=== PATIENT | male | born 1965 | race Asian ===

== ENCOUNTER 2023-07-23 11:03 | Emergency (ER) | payer OTHER, SELFPAY ==
[2023-07-23] VITALS (11 sets, daily range): BP systolic 181–232; BP diastolic 94–134; PULSE 109–122; RESP 16–33; TEMP 36.6; O2SAT 93–99
--- NOTE | 2023-07-23 11:40 | DI.RAD.S_ITS ---
PROCEDURE: XR CHEST 1V INDICATIONS: chest pain TECHNIQUE: One view of the chest was acquired. COMPARISON: None. FINDINGS: Surgical changes and devices: None. Lungs and pleura: Lungs are clear. No pleural effusions or pneumothorax. Mediastinum: Mediastinal contours appear normal. Heart size is normal. Bones and chest wall: No suspicious bony lesions. Overlying soft tissues appear unremarkable. IMPRESSION: No acute cardiopulmonary abnormality is seen. Dictated by: Noemy Umaña MD, PhD on 07/23/2023 at 12:04 Approved by: Noemy Umaña MD, PhD on 07/23/2023 at 12:04
[2023-07-23 11:56] LABS: Add Manual Diff / Slide Review NO; Basophils Absolute Auto 100 /uL (0-100); Eosinophils Absolute Auto 200 /uL (0-450); Eosinophils Percent Auto 2.4 % (2-4); Hematocrit 45.2 % (41-53); Lymphocytes Absolute Auto 800 /uL (1100-4500); Lymphocytes Percent Auto 9.1 % (25-40); Mean Corpuscular HGB Conc 33.2 % (30-36); Mean Corpuscular Volume 90.4 fL (80-100); Monocytes Absolute Auto 600 /uL (0-900); Monocytes Percent Auto 6.5 % (3-14); Neutrophils Absolute Auto 7500 /uL (1500-7000); Platelet Count 188 X10^3/uL (150-400); Red Blood Cell Count 5.01 X10^6/uL (4.5-5.9); Red Cell Distribution Width 14.6 % (11.6-14.8); White Blood Cell Count 9.2 X10^3/uL (4.5-11.0)
[2023-07-23 12:02] LABS: Prothrombin Time 11.9 SECONDS (9.4-12.5)
[2023-07-23 12:05] LABS: PTT Partial Thromboplastin Tim 30 SECONDS (25.1-36.5)
[2023-07-23 12:07] LABS: Alanine Aminotransferase 34 IU/L (<50); Albumin 4.5 g/dL (3.5-5.0); Alkaline Phosphatase 50 U/L (38-126); Aspartate Aminotransferase 28 IU/L (17-59); BUN Creatinine Ratio 19.3 (6-22); Bilirubin Total 0.6 mg/dL (0.2-1.3); Blood Urea Nitrogen 16 mg/dL (9-20); Carbon Dioxide 29 mmol/L (22-32); Chloride 106 mmol/L (98-107); Creatine Kinase 197 U/L (55-170); Estimated Glomerular Filt Rate > 60 mL/min (>60); Globulin 2.2 g/dL (1.7-4.1); Glucose 108 mg/dL (70-100); HEMOLYSIS 16 (0-50); Lipase 70 U/L (23-300); Sodium 138 mmol/L (137-145); Total Protein 6.7 g/dL (6.3-8.2)
[2023-07-23] MEDS: OXYMETAZOLINE NASAL SPRAY 30 ML 2 SPRAYS NASAL (12:13)
[2023-07-23 12:18] LABS: Troponin I 0.024 ng/mL (0.01-0.034)
--- NOTE | 2023-07-23 12:23 | ED_ITS ---
HPI - Epistaxis General Chief complaint: Nasal Problem Stated complaint: Nose Bleed, tachy, no thinners Time Seen by Provider: 07/23/23 11:39 Source: EMS Mode of arrival: EMS History of Present Illness HPI Narrative: Patient is a 58-year-old male without significant past medical history presenting today with epistaxis. 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 Came to the ED. He has not on any antiplatelet or anticoagulation medication. He is found to be tachycardic and extremely hypertensive. Me has no known history of hypertension not taking any current medications. He is completely asymptomatic without any sort of chest pain headache shortness of breath nausea or vomiting. He does not have an established PCP. Related Data Allergies Allergy/AdvReac Type Severity Reaction Status Date / Time No Known Drug Allergies Allergy Verified 07/23/23 11:41 Patient History Social History Smoking Status: Never smoker Smoking Status: Never smoker Substance Use Type: does not use Exam Initial Vital Signs Initial Vital Signs: Vital Signs Temperature 98 F 07/23/23 11:04 Pulse Rate 121 H 07/23/23 11:04 Respiratory Rate 16 07/23/23 11:04 Blood Pressure 226/134 H 07/23/23 11:04 Pulse Oximetry 99 07/23/23 11:04 Oxygen Delivery Method Room Air 07/23/23 11:04 GENERAL: Alert well-appearing 58-year-old male HEENT: Head atraumatic,EOMI, pupils reactive, face symmetric, NOSE: Was bleeding out of right side near but now bleeding controlled after nasal clamp and Afrin CARDIOVASCULAR: Regular rate and rhythm without murmurs, rubs or gallops. RESPIRATORY: Breath sounds equal bilaterally, no wheezes rales or rhonchi. ABDOMEN: Soft, nontender. Normoactive bowel sounds all 4 quadrants. No guarding or rebound. EXTREMITIES: Normal range of motion, no clubbing or edema. Neurovascularly intact NEUROLOGICAL: Alert and oriented x4.Normal gait and speech. No facial droop no obvious deficits SKIN: Warm, dry, no laceration, no petechiae, no rashes or lesions. Course Orders Ordered: ED Orders 07/23/23 11:39 EKG-12 Lead Stat 07/23/23 11:40 XR chest 1V Stat 07/23/23 11:46 Complete Blood Count AUTO DIFF Stat Comprehensive Metabolic Panel Stat D Dimer Stat Lipase Stat PTT Partial Thromboplastin Jhonny Stat Prothrombin Time INR Stat Troponin & CK Cardiac Panel Stat Discontinued Medications Oxymetazoline HCl (Oxymetazoline Nasal [place] 30 Ml) 2 sprays NASAL NOW ONE Stop: 07/23/23 11:40 Last Admin: 07/23/23 12:13 Dose: 2 sprays Documented By: JAMI Vital Signs Vital signs: Vital Signs - 8 hr 07/23/23 11:04 07/23/23 11:06 07/23/23 11:30 Temperature 98 F Pulse Rate 121 H 122 H 117 H Respiratory Rate 16 Blood Pressure 226/134 H Pulse Oximetry 99 96 93 Oxygen Delivery Method Room Air 07/23/23 11:31 07/23/23 11:31 07/23/23 11:38 Temperature Pulse Rate 117 H 120 H Respiratory Rate 21 Blood Pressure 182/131 H Pulse Oximetry 93 96 Oxygen Delivery Method 07/23/23 11:38 07/23/23 11:45 07/23/23 11:45 Temperature Pulse Rate 119 H Respiratory Rate 33 H Blood Pressure 232/119 H 223/112 H Pulse Oximetry 95 Oxygen Delivery Method 07/23/23 12:00 07/23/23 12:00 07/23/23 12:15 Temperature Pulse Rate 115 H 117 H Respiratory Rate 21 27 H Blood Pressure 186/106 H Pulse Oximetry 95 96 Oxygen Delivery Method 07/23/23 12:15 07/23/23 12:30 07/23/23 12:30 Temperature Pulse Rate 113 H Respiratory Rate 22 Blood Pressure 218/125 H 214/131 H Pulse Oximetry Oxygen Delivery Method 07/23/23 12:33 07/23/23 12:33 07/23/23 12:45 Temperature Pulse Rate 114 H 109 H Respiratory Rate 29 H 17 Blood Pressure 203/118 H Pulse Oximetry Oxygen Delivery Method 07/23/23 12:45 Temperature Pulse Rate Respiratory Rate Blood Pressure 181/94 H Pulse Oximetry Oxygen Delivery Method MDM - Epistaxis Lab Data 07/23/23 11:46 07/23/23 11:46 Labs: Lab Results 07/23/23 Range/Units 11:46 WBC 9.2 (4.5-11.0) X10^3/uL RBC 5.01 (4.5-5.9) X10^6/uL Hgb 15.0 (13.5-17.5) g/dL Hct 45.2 (41-53) % MCV 90.4 (80-100) fL MCH 30.0 (26-34) PG MCHC 33.2 (30-36) % RDW 14.6 (11.6-14.8) % Plt Count 188 (150-400) X10^3/uL Neut % (Auto) 81.0 H (50-75) % Lymph % (Auto) 9.1 L (25-40) % [place] % (Auto) 6.5 (3-14) % Eos % (Auto) 2.4 (2-4) % Baso % (Auto) 1.0 (0-2) % Neut # (Auto) 7500 H (2550-8096) /uL Lymph # (Auto) 800 L (5441-3605) /uL [place] # (Auto) 600 (0-900) /uL Eos # (Auto) 200 (0-450) /uL Baso # (Auto) 100 (0-100) /uL PT 11.9 (9.4-12.5) SECONDS INR 1.0 (0.9-1.3) APTT 30 (25.1-36.5) SECONDS D-Dimer 349 (<500) ng/ml Sodium 138 (137-145) mmol/L Potassium 4.0 (3.4-5.1) mmol/L Chloride 106 (98-107) mmol/L Carbon Dioxide 29 (22-32) mmol/L BUN 16 (9-20) mg/dL Creatinine 0.83 (0.66-1.25) mg/dL Estimated GFR > 60 (>60) mL/min BUN/Creatinine Ratio 19.3 (6-22) Glucose 108 H (70-100) mg/dL Calcium 9.0 (8.4-10.2) mg/dL Total Bilirubin 0.6 (0.2-1.3) mg/dL AST 28 (17-59) IU/L ALT 34 (<50) IU/L Alkaline Phosphatase 50 (38-126) U/L Total Creatine Kinase 197 H (55-170) U/L Troponin I 0.024 (0.01-0.034) ng/mL Total Protein 6.7 (6.3-8.2) g/dL Albumin 4.5 (3.5-5.0) g/dL Globulin 2.2 (1.7-4.1) g/dL Albumin/Globulin Ratio 2.0 (1.0-2.8) Lipase 70 (23-300) U/L ECG Data Attestation: I personally reviewed and interpreted this ECG as follows: Prior ECG tracings: not available for review Interpretation: Normal sinus rhythm rate 117 AR interval 130 QRS 84 QTC [address] changes or T-wave inversions MDM Narrative Medical decision making narrative: Patient is a 58-year-old male presenting today with acute epistaxis. He is found to have significantly elevated hypertension and tachycardia but is completely asymptomatic. I suspect that he has had uncontrolled hypertension For some time and is just asymptomatic. Blood work has been reviewed and does not show any evidence end-organ damage no evidence of anemia D-dimer is 349 Chest x-ray has been reviewed without any acute cardiopulmonary process EKG has been reviewed as above Strongly recommend that patient check blood pressure and heart rate at home. He will need blood pressure control we discussed about risk of heart attack and stroke. D-dimer is negative despite tachycardia years score is negative unlikely to be pulmonary embolism. Epistaxis was well-controlled with a nasal clamp and Afrin. No evidence of a posterior bleed. Blood pressure maybe related to epistaxis. YEARS Algorithm for Pulmonary Embolism (PE) from [employer] on 07/23/2023 All calculations should be rechecked by clinician prior to use RESULT SUMMARY: PE excluded YEARS algorithm rules out PE (0.43% with symptomatic VTE during 3-month follow- up) INPUTS: patient ?> 0 = No Clinical signs of DVT ?> 0 = No Hemoptysis ?> 0 = No PE most likely diagnosis ?> 0 = No D-dimer >=,000 ng/mL ?> 0 = No Discharge Plan Departure Patient Disposition: Home Clinical Impression: Epistaxis, Hypertension Instructions: High Blood Pressure, DI for Nosebleed Activity Restrictions/Additional Instructions: *You have been diagnosed with hypertension, nosebleed *What to do: At this time you do need control of your blood pressure may or may not be related to your bloody nose. Please take your blood pressure 1 to 2 times daily, record it and bring to her primary care provider. Please pay attention to symptoms showed says headache recurrent bloody nose chest pain shortness of breath If you should have recurrent bloody nose apply nasal clamp pressure and may try Afrin if it persists. *Continue to take medications as directed *Follow up with your primary care provider in 2-3 days or call [phone] *Return to ER if you should have recurrent bloody nose, chest pain headache shortness of breath numbness tingling weakness [or] any new, worsening or concerning symptoms Referrals: Miscellaneous,Doctor, MD [Primary Care Provider] - Stand Alone Forms: Patient Portal/API
[2023-07-23 12:45] LABS: D Dimer 349 ng/ml (<500)
== END 2023-07-23 13:13 | disposition home or self-care (01) ==
PROVIDERS: Emergency Provider Emergency Medicine
DX: R04.0 Epistaxis (principal); I10 Essential (primary) hypertension; R00.0 Tachycardia, unspecified
CPT/HCPCS: 36415; 71045; 80053; 82550; 83690; 84484; 85025; 85379; 85610; 85730; 93005; 99284

== ENCOUNTER 2023-07-26 13:11 | Emergency (ER) | payer OTHER, SELFPAY ==
[2023-07-26] VITALS (17 sets, daily range): BP systolic 140–201; BP diastolic 84–133; PULSE 67–190; RESP 8–23; TEMP 36.6; O2SAT 93–98; BMI 39.0
--- NOTE | 2023-07-26 13:23 | DI.RAD.S_ITS ---
PROCEDURE: XR CHEST 1V INDICATIONS: chest pain TECHNIQUE: One view of the chest was acquired. COMPARISON: [facility], CR, XR CHEST 1V, 07/23/2023, 11:50. FINDINGS: Surgical changes and devices: None. Lungs and pleura: Lungs are clear. No pleural effusions or pneumothorax. Mediastinum: Mediastinal contours appear normal. Heart size is normal. Bones and chest wall: No suspicious bony lesions. Overlying soft tissues appear unremarkable. IMPRESSION: Stable radiographic evaluation of the chest without acute cardiopulmonary abnormalities or focal airspace disease. Dictated by: Luis Langford M.D. on 07/26/2023 at 14:11 Approved by: Luis Langford M.D. on 07/26/2023 at 14:11
[2023-07-26 13:36] LABS: Add Manual Diff / Slide Review NO; Basophils Absolute Auto 100 /uL (0-100); Basophils Percent Auto 0.9 % (0-2); Eosinophils Absolute Auto 300 /uL (0-450); Eosinophils Percent Auto 2.3 % (2-4); Hematocrit 47.2 % (41-53); Hemoglobin 15.6 g/dL (13.5-17.5); Lymphocytes Absolute Auto 2400 /uL (1100-4500); Lymphocytes Percent Auto 20.2 % (25-40); Mean Corpuscular Hemoglobin 30.1 PG (26-34); Mean Corpuscular Volume 91.4 fL (80-100); Monocytes Absolute Auto 1000 /uL (0-900); Monocytes Percent Auto 8.7 % (3-14); Neutrophils Absolute Auto 8000 /uL (1500-7000); Neutrophils Percent Auto 67.9 % (50-75); Platelet Count 226 X10^3/uL (150-400); Red Blood Cell Count 5.16 X10^6/uL (4.5-5.9); Red Cell Distribution Width 14.9 % (11.6-14.8); White Blood Cell Count 11.8 X10^3/uL (4.5-11.0)
[2023-07-26 13:41] LABS: Prothrombin Time 11.5 SECONDS (9.4-12.5)
[2023-07-26 13:44] LABS: PTT Partial Thromboplastin Tim 38 SECONDS (25.1-36.5)
[2023-07-26 13:45] LABS: Alanine Aminotransferase 35 IU/L (<50); Albumin 4.6 g/dL (3.5-5.0); Albumin Globulin Ratio 1.9 (1.0-2.8); Alkaline Phosphatase 64 U/L (38-126); Aspartate Aminotransferase 28 IU/L (17-59); BUN Creatinine Ratio 14.7 (6-22); Bilirubin Total 0.7 mg/dL (0.2-1.3); Blood Urea Nitrogen 16 mg/dL (9-20); Calcium 8.9 mg/dL (8.4-10.2); Carbon Dioxide 24 mmol/L (22-32); Chloride 107 mmol/L (98-107); Creatine Kinase 80 U/L (55-170); Estimated Glomerular Filt Rate > 60 mL/min (>60); Globulin 2.4 g/dL (1.7-4.1); Glucose 120 mg/dL (70-100); HEMOLYSIS < 15 (0-50); Lipase 88 U/L (23-300); Magnesium 2.1 mg/dL (1.6-2.3); Potassium 4.2 mmol/L (3.4-5.1); Sodium 140 mmol/L (137-145)
[2023-07-26] MEDS: SODIUM CHLORIDE 0.9% 1,000 ML 1000 ML IV (13:50)
[2023-07-26] MEDS: ADENOSINE 6 MG/2 ML VIAL IV (13:50)
[2023-07-26 13:57] LABS: Troponin I < 0.012 ng/mL (0.01-0.034)
--- NOTE | 2023-07-26 14:09 | ED_ITS ---
HPI - Arrhythmia/Palpitations General Chief Complaint: Arrhythmia/Palpitations Stated Complaint: WIC; Resting HR 192, Diaphoretic Time Seen by Provider: 07/26/23 14:09 Source: patient Mode of arrival: Wheelchair History of Present Illness HPI narrative: 58-year-old male with no known history of tachyarrhythmia, no prior SVT, known atrial fibrillation or atrial flutter problems, was seen here Saturday for nosebleed it when his blood pressure was increased, was supposed to see his physician in follow up for blood pressure issues in for any recurrence of nosebleed problems, today at walk-in clinic was noted to have increased heart rate, which he did not seem to be feeling, told that he had fast heartbeat. Referred here for further evaluation and treatment of tachycardia. No syncope or presyncope symptoms. Admits to feeling a little sweaty when directly asked, denies nausea, denies chest pain, or feeling short of breath. Related Data Previous Rx's Medication Instructions Recorded metoprolol tartrate 25 mg tablet 25 mg PO BID #30 tabs 07/26/23 Allergies Allergy/AdvReac Type Severity Reaction Status Date / Time No Known Drug Allergies Allergy Verified 07/26/23 13:23 Review of Systems Review of Systems Narrative: as per HPI Patient History Social History Smoking Status: Never smoker Smoking Status: Never smoker Substance Use Type: does not use Exam Narrative Exam Narrative: GENERAL: Well-developed patient, in no distress, mentating HEAD: Atraumatic. Normocephalic. EYES: Pupils equal round and reactive. Extraocular motions intact. No scleral icterus. No injection or drainage. ENT: Nose without bleeding, purulent drainage. Throat without erythema, tonsillar hypertrophy or exudate. Airway patent. NECK: Trachea midline. Non tender CARDIOVASCULAR: Fast rate regular rhythm without obvious murmurs, gallops, or rubs. RESPIRATORY: Clear to auscultation. Breath sounds equal bilaterally. No wheezes, rales, or rhonchi. GASTROINTESTINAL: Abdomen soft, non-tender, nondistended. EXTREMITIES: No edema or joint tenderness. BACK: Nontender without deformity or crepitance. No flank tenderness. NEURO: AOx3. Normal speech, grossly nonfocal neuro exam SKIN: No rash or erythema of visible areas Initial Vital Signs Initial Vital Signs: Vital Signs Temperature 97.9 F 07/26/23 13:17 Pulse Rate 190 H 07/26/23 13:17 Respiratory Rate 16 07/26/23 13:17 Blood Pressure 141/85 H 07/26/23 13:17 Pulse Oximetry 98 07/26/23 13:17 Oxygen Delivery Method Room Air 07/26/23 13:17 Course Orders Ordered: Discontinued Medications Adenosine (Adenosine 6 Mg/2 Ml Vial) 6 mg IV NOW ONE Stop: 07/26/23 13:50 Last Admin: 07/26/23 13:50 Dose: 6 mg Documented By: DILIP Aspirin (Aspirin 81 Mg Chew Tab) 324 mg PO NOW ONE Stop: 07/26/23 13:24 Last Admin: 07/26/23 15:13 Dose: Not Given Documented By: DILIP Sodium Chloride (Normal Saline 0.9%) 1,000 mls @ 1,000 mls/hr IV BOLUS ONE Stop: 07/26/23 14:48 Last Infusion: 07/26/23 15:06 Dose: Infused Documented By: Admin: 07/26/23 13:50 Dose: 1,000 mls/hr Documented By: DILIP Metoprolol Tartrate (Metoprolol Ir 25 Mg Tablet) 25 mg PO NOW ONE Stop: 07/26/23 14:46 Last Admin: 07/26/23 15:06 Dose: 25 mg Documented By: DILIP Vital Signs Vital signs: Vital Signs - 8 hr 07/26/23 13:17 07/26/23 13:37 07/26/23 13:40 Temperature 97.9 F Pulse Rate 190 H 67 Respiratory Rate 16 Blood Pressure 141/85 H 148/106 H Pulse Oximetry 98 94 Oxygen Delivery Method Room Air 07/26/23 13:40 07/26/23 14:00 07/26/23 14:00 Temperature Pulse Rate 182 H 112 H Respiratory Rate 10 L 9 L Blood Pressure 146/101 H Pulse Oximetry 97 95 Oxygen Delivery Method 07/26/23 14:30 07/26/23 14:30 07/26/23 15:00 Temperature Pulse Rate 106 H 99 H Respiratory Rate 8 L 8 L Blood Pressure 161/99 H Pulse Oximetry 97 96 Oxygen Delivery Method 07/26/23 15:00 07/26/23 15:30 07/26/23 15:30 Temperature Pulse Rate 93 H Respiratory Rate 8 L Blood Pressure 140/92 H 141/84 H Pulse Oximetry 95 Oxygen Delivery Method 07/26/23 16:00 07/26/23 16:01 07/26/23 16:01 Temperature Pulse Rate 90 89 Respiratory Rate 18 13 Blood Pressure 157/103 H Pulse Oximetry 98 97 Oxygen Delivery Method 07/26/23 16:30 07/26/23 16:30 07/26/23 17:00 Temperature Pulse Rate 88 80 Respiratory Rate 22 Blood Pressure 146/95 H Pulse Oximetry 93 95 Oxygen Delivery Method 07/26/23 17:00 07/26/23 17:30 07/26/23 17:31 Temperature Pulse Rate 74 81 Respiratory Rate 15 13 Blood Pressure 158/106 H Pulse Oximetry 94 95 Oxygen Delivery Method 07/26/23 17:31 07/26/23 18:00 07/26/23 18:00 Temperature Pulse Rate 74 Respiratory Rate 23 Blood Pressure 187/120 H 201/133 H Pulse Oximetry 95 Oxygen Delivery Method 07/26/23 18:30 07/26/23 18:31 07/26/23 18:31 Temperature Pulse Rate 78 76 Respiratory Rate Blood Pressure 193/101 H Pulse Oximetry 95 95 Oxygen Delivery Method 07/26/23 18:45 Temperature Pulse Rate Respiratory Rate Blood Pressure 177/109 H Pulse Oximetry Oxygen Delivery Method MDM - Arrhythmia/Palpitations Lab Data Attestation: I reviewed the patient's lab results. 07/26/23 13:21 07/26/23 13:21 Labs: Lab Results 07/26/23 07/26/23 Range/Units 13:21 17:04 WBC 11.8 H (4.5-11.0) X10^3/uL RBC 5.16 (4.5-5.9) X10^6/uL Hgb 15.6 (13.5-17.5) g/dL Hct 47.2 (41-53) % MCV 91.4 (80-100) fL MCH 30.1 (26-34) PG MCHC 33.0 (30-36) % RDW 14.9 H (11.6-14.8) % Plt Count 226 (150-400) X10^3/uL Neut % (Auto) 67.9 (50-75) % Lymph % (Auto) 20.2 L (25-40) % [place] % (Auto) 8.7 (3-14) % Eos % (Auto) 2.3 (2-4) % Baso % (Auto) 0.9 (0-2) % Neut # (Auto) 8000 H (7216-9656) /uL Lymph # (Auto) 2400 (8856-4313) /uL [place] # (Auto) 1000 H (0-900) /uL Eos # (Auto) 300 (0-450) /uL Baso # (Auto) 100 (0-100) /uL PT 11.5 (9.4-12.5) SECONDS INR 1.0 (0.9-1.3) APTT 38 H (25.1-36.5) SECONDS Sodium 140 (137-145) mmol/L Potassium 4.2 (3.4-5.1) mmol/L Chloride 107 (98-107) mmol/L Carbon Dioxide 24 (22-32) mmol/L BUN 16 (9-20) mg/dL Creatinine 1.09 (0.66-1.25) mg/dL Estimated GFR > 60 (>60) mL/min BUN/Creatinine Ratio 14.7 (6-22) Glucose 120 H (70-100) mg/dL Calcium 8.9 (8.4-10.2) mg/dL Magnesium 2.1 (1.6-2.3) mg/dL Total Bilirubin 0.7 (0.2-1.3) mg/dL AST 28 (17-59) IU/L ALT 35 (<50) IU/L Alkaline Phosphatase 64 (38-126) U/L Total Creatine Kinase 80 (55-170) U/L Troponin I < 0.012 0.043 H (0.01-0.034) ng/mL Total Protein 7.0 (6.3-8.2) g/dL Albumin 4.6 (3.5-5.0) g/dL Globulin 2.4 (1.7-4.1) g/dL Albumin/Globulin Ratio 1.9 (1.0-2.8) Lipase 88 (23-300) U/L Imaging Data Chest x-ray: Radiologist's Impresson: [address] [address] XRay Report Signed Patient: Navid Argueta MR#: [id number] : 1965 Acct:[id number] Age/Sex: 58 / M Date of Service: 07/26/23 Loc: ED Accession Number: [id number] Procedure: XR chest 1V Ordering Provider: Aaron Pablo MD PROCEDURE: XR CHEST 1V INDICATIONS: chest pain TECHNIQUE: One view of the chest was acquired. COMPARISON: [facility], CR, XR CHEST 1V, 07/23/2023, 11:50. FINDINGS: Surgical changes and devices: None. Lungs and pleura: Lungs are clear. No pleural effusions or pneumothorax. Mediastinum: Mediastinal contours appear normal. Heart size is normal. Bones and chest wall: No suspicious bony lesions. Overlying soft tissues appear unremarkable. IMPRESSION: Stable radiographic evaluation of the chest without acute cardiopulmonary abnormalities or focal airspace disease. Dictated by: Luis Langford M.D. on 07/26/2023 at 14:11 Approved by: Luis Langford M.D. on 07/26/2023 at 14:11 ECG Data Attestation: I personally reviewed and interpreted this ECG as follows: Interpretation: Study 1330, Narrow complex tachycardia, regular, consistent with supraventricular tachycardia. No obvious ST segment depression or elevation changes. None for comparison. Study 1402, normal sinus rhythm with rate 92, no obvious ST segment elevation or depression changes. T-wave inversion lead 3 noted. Upright in leads 2 and F. Unifocal PVCs noted. [place] 136, QRS 88, QTC 445. MDM Narrative Medical decision making narrative: 58-year-old male without history of any heart rate/rhythm problems, recent nosebleed ED evaluation had high BP, in follow up clinic for BP noted to have fast heart rate on pulse oximeter, heart rate 170 range, no shortness of breath, no chest pain, no syncope or presyncope symptoms. No nausea or vomiting neck or arm pain. EKG consistent with SVT, no obvious ischemic changes. Adenosine 6 mg IV push, sinus tachycardia 100 range noted. 1430, heart rate 100-110 further improved, IV fluid given. We will repeat interval troponin. P.o. metoprolol 25 mg dose. Repeat troponin 0.04 slight elevation, consistent with his markedly accelerated heart rate, asymptomatic. We will discuss with cardiology for disposition and follow up. Case discussed with Dr. Pittman cardiology, who would like to see patient in follow up, agrees with metoprolol 25 mg twice daily for now. Contact information for discharge provided Critical Care Time Critical Care Time Critical Care Time: Yes Total Critical Care Time: 35 Attestation: The high probability of a clinically significant, sudden or life threatening deterioration of the [cardiopulmonary] system(s) required my full and direct attention, intervention and personal management. The aggregate critical care time was [35] minutes. This time is in addition to time spent performing reported procedures but includes the following: [x] Data Review and interpretation [x] Patient assessment and monitoring of vital signs [x] Documentation [x] Medication orders and management Discharge Plan Departure Patient Disposition: Home Clinical Impression: SVT (supraventricular tachycardia) Instructions: DI for Arrhythmias, DI for Paroxysmal Supraventricular Tachycardia Activity Restrictions/Additional Instructions: You had recent elevated blood pressure during nosebleed evaluation, went to clinic for further follow up of blood pressure issues, incidentally noted to have fast heart rate that you essentially did not seem to be feeling, heart rate quite fast, narrow complex, regular, looked to be on EKG here in the emergency department to be supraventricular tachycardia. And in fact he responded to IV push dose adenosine that can help with SVT. You were later given metoprolol medication to help continue to control your rate. Follow up EKG showed improved rhythm to sinus. Blood pressure improved. Case discussed with Dr. Pittman cardiology, who agreed with metoprolol 25 mg twice daily medication for discharge, he will see you in follow up. His contact information provided on discharge. Return earlier to this/nearest emergency department for any change worsening symptoms or any concerns prior Prescriptions: New metoprolol tartrate 25 mg tablet 25 mg PO BID Qty: 30 0RF Referrals: Miscellaneous,MD Joaquin [Primary Care Provider] - Solange Pittman MD [Physician] - Stand Alone Forms: Patient Portal/API
[2023-07-26] MEDS: METOPROLOL IR 25 MG TABLET PO (15:06)
[2023-07-26 17:37] LABS: Troponin I 0.043 ng/mL (0.01-0.034)
== END 2023-07-26 18:52 | disposition home or self-care (01) ==
PROVIDERS: Emergency Provider Emergency Medicine
DX: I47.10 Supraventricular tachycardia, unspecified (principal)
CPT/HCPCS: 36415; 71045; 80053; 82550; 83690; 83735; 84484; 85025; 85610; 85730; 93005; 93010; 96374; 99284; 99291; J0153

== ENCOUNTER → 2023-08-23 10:33 | Outpatient (CLI) | payer OTHER, SELFPAY ==
--- NOTE | 2023-08-23 | DI.ECHO.S_ITS ---
[facility] : : [address] : : [place] : : [id number] : : Phone: [phone] Echocardiogram Report + + :Name: ALBERTO RANDHAWA Study Date: 08/23/2023 Height: 66 in : :[facility] ReadingLocation: Weight: 235 lb : : Gender: Male BSA: 2.1 m2 : :: 1965 Age: 58 yrs BP: 147/96 mmHg: :Reason For Study: HYPERTENSION : :Ordering Physician: ALFREDO, : :EMILY Performed By: Cornelio Bermudez : :Referring: EMILY FUENTES : + + Interpretation Summary Normal sinus rhythm. Normal LV size, wall thickness, wall motion and LV systolic function. EF is 50-55%. Borderline dilated RV; otherwise normal chamber sizes. No valve abnormalities. No prior study available for comparison. Procedure: A two-dimensional transthoracic echocardiogram with color flow and Doppler was performed. The study quality was technically adequate. There is no prior echocardiogram noted for this patient. The patient was in sinus rhythm with heart rates between 76-89 bpm during the exam. Left Ventricle: The left ventricle is normal in size and wall thickness. The ejection fraction is estimated to be 50-55%. Right Ventricle: The right ventricle is borderline dilated. The right ventricular systolic function is normal. Atria: The left atrial size is normal. The right atrium is normal in size. The interatrial septum grossly appears intact with no obvious evidence for an atrial septal defect. Mitral Valve: The mitral valve is normal. There is no mitral valve stenosis. There is trace mitral regurgitation. Aortic Valve: The aortic valve is trileaflet. There is no aortic valve stenosis. No aortic regurgitation is present. Tricuspid Valve: The tricuspid valve is normal. There is no tricuspid stenosis. There is mild tricuspid regurgitation. The right ventricular systolic pressure is estimated to be at least 28.9 mmHg based on an estimated right atrial pressure of 3 mm Hg. Pulmonic Valve: The pulmonic valve is not well visualized. There is no pulmonic valvular stenosis. There is a trace or physiologic amount of pulmonic regurgitation. Great Vessels: The aortic root is normal size. The dimensions of the ascending aorta are normal. The IVC is of normal diameter and collapses greater than 50% with a sniff. This suggests a low right atrial pressure of 3 mm Hg. Pericardium/ Pleura There is no pericardial effusion. There is no pleural effusion. MMode/2D Measurements & Calculations LVIDd: 5.3 cm LVOT diam: 2.0 cm LVIDs: 3.3 cm Ao root diam: 3.1 cm FS: 37.0 % asc Aorta Diam: 3.5 cm IVSd: 0.83 cm Ao Arch Diam (Prox Trans): 3.0 cm LVPWd: 0.85 cm LV dutta. diameter/BSA (cm/m^2): 2.5 LV sys. diameter/BSA (cm/m^2): 1.6 LA A2 area: 19.3 cm2 RA long axis: 4.4 cm LA A4 area: 17.2 cm2 RA area: 16.0 cm2 LA length (vol): 5.3 cm RA vol: 49.6 ml LA vol: 53.3 ml RA : 23.2 ml/m2 LA vol index: 24.9 ml/m2 IVC diam: 2.0 cm RVD1 (basal): 4.6 cm RVD2 (mid): 3.7 cm TAPSE: 2.9 cm Doppler Measurements & Calculations Ao V2 max: 142.7 cm/sec LVOT Max Jerzy: 113.7 cm/sec Ao V2 mean: 95.9 cm/sec LV V1 max P.2 mmHg Ao max P.1 mmHg LV V1 VTI: 22.4 cm Ao mean P.3 mmHg LIA(I,D): 2.8 cm2 Ao V2 VTI: 26.3 cm LIA(V,D): 2.6 cm2 sev ratio: 0.85 LIA indexed to BSA (cm^2/m^2): 1.3 MV E max jerzy: 86.7 cm/sec TR max jerzy: 254.7 cm/sec MV A max jerzy: 87.0 cm/sec TR max P.9 mmHg MV E/A: 1.00 PA V2 max: 119.9 cm/sec Med Peak E' Jerzy: 9.7 cm/sec PA V2 mean: 86.9 cm/sec E/E' med: 8.9 PA mean P.3 mmHg Lat Peak E' Jerzy: 10.0 cm/sec PA pr(Accel): 24.2 mmHg E/E' lat: 8.7 E/e' average: 8.8 MV dec time: 0.18 sec SV(LVOT): 72.3 ml Electronically signed by: Brigida Mix M.D. on Reading Physician:08/24/2023 04:24 AM
== END ==
LOC: ECHO 10:35
PROVIDERS: PCP Registered Nurse; Referring Provider Registered Nurse; Visit Provider Registered Nurse
DX: I10 Essential (primary) hypertension (principal); I07.1 Rheumatic tricuspid insufficiency
CPT/HCPCS: 93306

== ENCOUNTER 2023-12-11 08:02 | Day surgery (SDC) | payer OTHER, SELFPAY ==
[2023-12-09 12:37] VITALS: BMI 37.9
--- NOTE | 2023-12-10 17:15 | P.HP_ITS ---
History of Present Illness History of Present Illness Date Patient Seen: 12/11/23 Time Patient Seen: 08:18 Chief complaint: [facility] [place]: 58M with a symptomatic reducible umbilical hernia. Since last seen evaluated by cardiology for SVT. No reoccurence cardiac monitoring demonstrates non sustained runs of atrial tachycardia. Structurally normal echo and normal stress test summer 2023. [facility] Medical History SVT (supraventricular tachycardia) (07/2023) Hypertension Surgical History History of surgery on lower extremity Family History Mother Hypertension Heart disease Diabetes mellitus Social History marital status: household members: spouse and children lives independently: Yes Smoking Status: Former smoker alcohol intake: current substance use type: does not use Meds Home Medications and Allergies Home Medications Medication Instructions Recorded Confirmed Type lisinopril 20 1 tab PO DAILY 08/15/23 12/11/23 History mg-hydrochlorothiazide 25 mg tablet sodium,potassium,mag sulfates 17.5 See Rx Instructions PO .COMPLEX 11/05/23 Rx gram-3.13 gram-1.6 gram oral soln #354 mL (Suprep Bowel Prep Kit) lansoprazole 15 mg capsule,delayed 15 mg PO DAILY 12/09/23 12/11/23 History release metoprolol tartrate 25 mg tablet 50 mg PO BID 12/09/23 12/11/23 History Allergies Allergy/AdvReac Type Severity Reaction Status Date / Time No Known Drug Allergies Allergy Verified 12/11/23 08:22 Exam Narrative Exam Narrative: GENERAL: A well nourished, well developed adult, resting comfortably, in no acute distress. HEENT: Normocephalic, atraumatic. No scleral icterus CHEST: Rising symmetrically. No audible wheezes CARDIOVASCULAR: Warm and well perfused. Regular rate ABDOMEN: Soft, non-tender, non-distended EXTREMITIES: Normal tone and without edema. NEUROLOGIC: Moving all extremities spontaneously. No gross motor deficits. Assessment & Plan Assessment and plan (1) Umbilical hernia: Qualifiers: Obstruction and gangrene presence: without obstruction or gangrene Qualified Code(s): K42.9 - Umbilical hernia without obstruction or gangrene Status: Acute Assessment & Plan narrative: 58-year-old man history of SVT with a symptomatic reducible umbilical hernia. Plan is for open umbilical hernia repair likely with mesh. Overview of the operation discussed. Operative risks including hemorrhage, infection, recurr ence were reviewed. Questions have been answered and he is in agreement with this plan. He provides his consent to proceed. Time-Based Coding :: [TOTAL MINUTES] spent with patient and on the chart (including review of chart, obtaining history, exam, reviewing outside data, placing orders, documenting exam and treatment plan, and counseling patient) on [DATE].
[2023-12-11] VITALS (7 sets, daily range): BP systolic 97–154; BP diastolic 59–97; PULSE 62–76; RESP 10–18; TEMP 36.2–36.7; O2SAT 90–96; BMI 38.7
[2023-12-11] MEDS: ACETAMINOPHEN 325 MG TABLET 975 MG PO (08:25)
[2023-12-11] MEDS: LACTATED RINGERS 1,000 ML 42 ML IV (08:41)
[2023-12-11] MEDS: CEFAZOLIN 2 GM/100 ML PREMIX 100 ML IV (08:56)
--- NOTE | 2023-12-11 09:10 | SUR.OPER ---
Supine on padded OR bed, head on pillow, arms secured on padded arm boards at <90 degrees abduction, legs uncrossed, safety belt at thigh, tape over blanket over lower legs.
[2023-12-11] MEDS: BUPIVACAINE 0.25% (PF) VIAL 30 ML INJ (09:16)
--- NOTE | 2023-12-11 10:08 | PM.OP.1 ---
Operative Date/Time/Diagnoses Date of procedure: 12/11/23 Time of procedure: 10:11 Pre-op diagnosis: Umbilical hernia 4 cm Post-op diagnosis: same Procedure & Clinicians Procedure: Open umbilical hernia repair Same procedure as scheduled: Yes Indications: 58-year-old man with a reducible symptomatic umbilical hernia here for elective repair Surgeon: Loy Patel Click Yes if Unassisted: Yes Anesthesia Type: General Operative Notes Findings: Viable omentum within the hernia sac Fascial defect 4 cm Specimen(s): none sent Estimated Blood Loss (mL): 10 Procedure in detail: Patient was brought to the operating room placed supine on the table. Bilateral lower extremity compression devices were applied. General anesthesia was induced and they were intubated with an endotracheal tube. They received 2 g of Ancef prior to skin incision. They were prepped and draped in sterile fashion. A time-out was performed. A curvilinear incision was made inferior to the umbilicus. The subcutaneous tissues were divided. The umbilical hernia was identified and the hernia sac was dissected off the umbilical skin and circumferentially off of the fascia defect. The hernia sac was sharply opened and contained viable omentum. The omentum was reduced back into the abdomen. Using blunt dissection I carefully carefully freed the hernia sac from beneath the fascia defect in order to accomodate the mesh. The fascia defect was measured using a ruler at 4 cm in maximal diameter. A Bard Ventralex ST hernia patch 8 cm was inserted beneath the fascia defect and above the peritoneum in a sublay position. The mesh was anchored in multiple locations using Ethibond suture to the fascia and the fascial defect was closed over the mesh. The umbilical skin was tacked to the subcutaneous tissues and then the remainder of the subcutaneous tissues were reapproximated using 3 0 Vicry,l skin closed with 4 0 Monocryl followed by the application of Dermabond and Steri-Strips. Sponge instrument count at the end of the operation was correct. Patient tolerated procedure well was extubated and transferred to postoperative care unit in stable condition. Complications: none Post-operative Condition: stable Disposition: same day surgery
== END 2023-12-11 10:45 | disposition home or self-care (01) ==
PROVIDERS: PCP Registered Nurse; Referring Provider Surgery; Visit Provider Surgery
PROC: (CPT 49593; principal; 2023-12-11 09:15)
DX: K42.9 Umbilical hernia without obstruction or gangrene (principal)
CPT/HCPCS: 49593; J0690; J1100; J2250; J2405; J2704; J3010

== ENCOUNTER → 2024-04-21 10:00 | Outpatient (CLI) | payer OTHER, SELFPAY | PROVIDERS: PCP Registered Nurse; Referring Provider Surgery; Visit Provider Surgery | DX: Z53.9 Procedure and treatment not carried out, unspecified reason (principal) ==

== ENCOUNTER 2024-05-01 12:42 | Day surgery (SDC) | payer OTHER, SELFPAY ==
[2024-05-01] VITALS (13 sets, daily range): BP systolic 76–119; BP diastolic 38–78; PULSE 66–74; RESP 16–22; TEMP 36.6–37.2; O2SAT 92–96
--- NOTE | 2024-05-01 | PATH_ITS ---
[facility] Accession Number: [id number] No. of containers..02 Tissue . 01 Material submitted: . PART A: gastrointestinal site - ANTRUM PART B: colon - DESCENDING COLON POLYP . 01 Diagnosis: A. GASTRIC ANTRUM, BIOPSY: Gastric antral mucosa with no diagnostic abnormality. No evidence of Helicobacter organisms on H/E stain. Negative for intestinal metaplasia. Negative for dysplasia or malignancy. . B. DESCENDING COLON POLYP: Colonic mucosa with focal mucosal hyperplasia. Negative for dysplasia or malignancy. MRV 05/05/2024 1347 Local . 01 Electronically signed: . Buzz Em MD, PhD, Pathologist NPI- [id number] . 01 Gross description: . Part A: ANTRUM: Received in formalin is 1 fragment(s) of tucker, soft tissue measuring 0.4 x 0.2 x 0.2 cm submitted entirely in 1 cassette(s) Part B: DESCENDING COLON POLYP: Received in formalin is 1 fragment(s) of tucker, soft tissue measuring 0.2 x 0.2 x 0.2 cm submitted entirely in 1 cassette(s) /DEVI 05/04/2024 2216 Local . 01 Pathologist provided ICD-10: R10.13, K63.5, K21.9 . 01 CPT . 332913, [id number] Specimen Comment: A courtesy copy of this report has been sent to [facility] Pathology Performed at: [address] [address], [place], [place] [id number] MD Don Del Toro MD Phone: [phone]
[2024-05-01] MEDS: LACTATED RINGERS 1,000 ML 84 ML IV (13:26)
--- NOTE | 2024-05-01 13:46 | PM.HP.IH.1 ---
History of Present Illness History of Present Illness Date Patient Seen: 05/01/24 Time Patient Seen: 13:46 Chief complaint: SDC Narrative: 59-year-old white male on a proton pump inhibitor for prolonged period time with continued symptoms of reflux intermittently, overdue for colon screening. Was booked last summer and got delayed for some reason. [facility] Medical History (Updated 05/01/24 @ 13:47 by Thiago Mc MD) Colon cancer screening GERD (gastroesophageal reflux disease) SVT (supraventricular tachycardia) (07/2023) Hypertension Surgical History History of surgery on lower extremity Family History Mother Hypertension Heart disease Diabetes mellitus Social History marital status: household members: spouse and children lives independently: Yes Smoking Status: Former smoker alcohol intake: current substance use type: does not use Meds Home Medications and Allergies Home Medications Medication Instructions Recorded Confirmed Type lisinopril 20 1 tab PO DAILY 08/15/23 05/01/24 History mg-hydrochlorothiazide 25 mg tablet lansoprazole 15 mg capsule,delayed 15 mg PO DAILY 12/09/23 01/10/24 History release metoprolol tartrate 25 mg tablet 50 mg PO BID 12/09/23 05/01/24 History acetaminophen 325 mg capsule 650 mg (2 x 325 mg) PO QID PRN 12/11/23 01/10/24 Rx (Tylenol) pain #60 caps amlodipine 2.5 mg tablet 2.5 mg PO DAILY 05/01/24 05/01/24 History Allergies Allergy/AdvReac Type Severity Reaction Status Date / Time No Known Drug Allergies Allergy Verified 05/01/24 13:27 Review of Systems Review of Systems ROS: Yes All systems reviewed with the patient and are negative except as otherwise documented Exam Vital Signs (past 8 hours): - 05/01/24 13:37 Temperature 97.8 F Pulse Rate 70 Respiratory Rate 16 Blood Pressure 119/78 Pulse Oximetry 96 Narrative Exam Narrative: Gen: NAD, sitting comfortably in bed, appears well HEENT: Sclera are anicteric, head is normocephalic and atraumatic, trachea is midline. CV: RRR, no JVD Resp: clear to auscultation bilaterally, equal chest wall movement bilaterally Abd: soft, nontender, normoactive bowel sounds Ext: no edema, full range of motion Neuro: Cranial nerves II-XII grossly intact, no focal deficits Skin: No erythema or ecchymosis Assessment & Plan Assessment and plan (1) GERD (gastroesophageal reflux disease): Qualifiers: Esophagitis presence: esophagitis presence not specified Qualified Code(s): K21.9 - Gastro-esophageal reflux disease without esophagitis Status: Acute (2) Colon cancer screening: Status: Acute Assessment & Plan narrative: Patient presents for esophagogastroduodenoscopy and colonoscopy Risks, benefits, alternatives to colonoscopy explained, including but not limited to esophageal, gastric or bowel perforation or other serious complication requiring surgery at less than 1 in 5000 esophagogastroduodenoscopy and colonoscopies, abdominal pain, cramping or bleeding and less than 1% of colonoscopies, and the chances that we find a diagnosis that would require further intervention of about 2%. Patient agrees to proceed. Time-Based Coding :: [TOTAL MINUTES] spent with patient and on the chart (including review of chart, obtaining history, exam, reviewing outside data, placing orders, documenting exam and treatment plan, and counseling patient) on [DATE]. [employer] Document charge(s): No
--- NOTE | 2024-05-01 14:07 | PM.OP.EC ---
Operative Date/Time/Diagnoses Date of procedure: 05/01/24 Time of procedure: 14:07 Pre-op diagnosis: 1. Gastroesophageal reflux disease refractory to PPIs 2. Colon screening Post-op diagnosis: same (1. Mild antral gastritis 2. Descending colon polyp) Procedure & Clinicians Study performed: 1. EGD with biopsy 2. Colonoscopy with cold snare biopsy of Descending colon polyp Same procedure as scheduled: Yes Indications: GERD, colon screen Surgeon: Thiago Mc Procedure Notes Procedure in detail: Time-out was performed. Mac was induced. Patient was placed in left lateral decubitus position. Bite block was placed. Gastroscope was inserted through the bite block of the 2nd portion of the duodenal. Duodenal appeared normal. The antrum showed mild erythema. Biopsies were taken of the antrum. Retroflexed view did not reveal any significant hiatal hernia. The Z-line was located 40 cm from the incisors and was regular. Esophagus was normal. Gastroscope was withdrawn The perineum was inspected without any gross abnormality. Lubricated pediatric colonoscope was inserted and advanced to the cecum. The terminal ileum was intubated. The colonoscope was withdrawn slowly inspecting the circumference of the colon. A small descending colon polyp was noted, removed completely with cold snare polypectomy and retrieved. Very small polyps may have been missed, prep quality was adequate. Retroflexed view of the rectum showed small, non prolapsed nonbleeding internal hemorrhoids. The scope was withdrawn the patient was taken to PACU in good condition. Scope withdrawal time: 7 Findings: diverticulosis, gastritis and polyp Specimen(s): other (1. Antrum biopsy 2. Descending colon polyp) Complications: none Post-procedure Recommendations: Colonscopy in 5 years (Next colonoscopy in 7 years) and Continue medication(s) (Continue your proton pump inhibitor) Follow up: as needed Disposition: PACU
== END 2024-05-01 15:07 | disposition home or self-care (01) ==
PROVIDERS: Surgery; PCP Registered Nurse; Referring Provider Surgery; Visit Provider Surgery
PROC: 0DJ08ZZ Inspection of Upper Intestinal Tract, Via Natural or Artificial Opening Endoscopic (ICD-10-PCS; CPT 45385; principal; 2024-05-01 13:45)
PROC: 0DJD8ZZ Inspection of Lower Intestinal Tract, Via Natural or Artificial Opening Endoscopic (ICD-10-PCS; CPT 45378; 2024-05-01 13:45)
DX: Z12.11 Encounter for screening for malignant neoplasm of colon (principal); K21.9 Gastro-esophageal reflux disease without esophagitis; K57.30 Diverticulosis of large intestine without perforation or abscess without bleeding; K29.70 Gastritis, unspecified, without bleeding; K63.5 Polyp of colon
CPT/HCPCS: 45385; 43239; J2704